=== PATIENT | female | born 1975 | race Caucasian/White ===

== ENCOUNTER 2022-09-02 15:13 | Emergency (ER) | payer OTHER, SELFPAY ==
[2022-09-02 15:18] VITALS: BP 149/92; PULSE 77; RESP 18; TEMP 37.2; O2SAT 100; BMI 25.1
--- NOTE | 2022-09-02 15:42 | ED_ITS ---
HPI - Headache General Chief Complaint: Headache/Migraine Stated Complaint: Migraine 6 days Time Seen by Provider: 09/02/22 15:23 History of Present Illness HPI Narrative: This 47-year-old female comes in with migraine headache that is been present for the past 6 days. She has recurrent migraines and has been seeing a neurologist. She has taken her typical medicines at home and comes in for treatment of a recipe that comes from her neurologist. This include Zofran, magnesium sulfate, valproate, and dexamethasone. She does not describe any neurologic deficits or other symptoms. Related Data Home Medications Medication Instructions Recorded Confirmed amitriptyline 25 mg tablet 50 mg PO HS 09/02/22 09/02/22 rizatriptan 10 mg disintegrating 10 mg PO PRN 09/02/22 tablet Allergies Allergy/AdvReac Type Severity Reaction Status Date / Time Sulfa (Sulfonamide Allergy Rash Verified 09/02/22 15:24 Antibiotics) Review of Systems Status of ROS: Reports: 10 or more systems reviewed and unremarkable except as noted in History and below Narrative: Constitutional: No fevers, no weight gain or loss. Eyes: No discharge. No vision changes. HENT: No congestion, no sore throat, no ear pain. Cardiovascular: No chest pain, no palpitations. Respiratory: No shortness of breath, no wheezes, no cough. Gastrointestinal: No abdominal pain, no diarrhea. Genitourinary: No dysuria, no hematuria. Musculoskeletal: Normal range of motion. Skin: No rashes, no pruritis. Neurological: No dizziness, weakness, sensory change, speech change. Endo/Heme/Allergies: No bruising or bleeding. No polydipsia. Pysch: no suicidality, no anxiety, no insomnia. All other systems reviewed and are negative. PFSH [facility] Social History Smoking Status: Never smoker Do you use any of these nicotine containing products: None Second hand tobacco smoke exposure: No How often do you have a drink containing alcohol: never How often do you have six or more drinks on one occasion: Never AUDIT-C Alcohol total score: 0 Non-prescribed substance use: denies use service: No Exam Narrative: Exam Narrative: Constitutional: Well-developed, well-nourished, no acute distress. HEENT: Normocephalic, atraumatic. Neck: Normal range of motion. Nontender. Supple. Heart: Intact distal pulses. Lungs: No chest discomfort. No wheezes, rhonchi, or rales. Abdomen: Nontender. Back: Normal range of motion. Extremities: Normal range of motion. No injury. Skin: Intact. No rash. Warm. No erythema or pallor. Neurologic: No altered sensation. No weakness. Alert and oriented. Psychiatric: No suicidality. No anxiety or depression. No insomnia. Nursing notes and vitals signs are reviewed. Const: Vital Signs, click to edit/add: Vital Signs - 24 hr 09/02/22 15:18 Temperature 98.9 F Pulse Rate [Right Pulse Oximeter] 77 Respiratory Rate 18 Blood Pressure [Ri ght Upper Arm] 149/92 H Pulse Oximetry 100 Oxygen Delivery Me thod Room Air Course Vital Signs Vital signs: Initial Vital Signs Temperature 98.9 F 09/02/22 15:18 Temperature Source Temporal Artery Scan 09/02/22 15:18 Pulse Rate 77 09/02/22 15:18 Respiratory Rate 18 09/02/22 15:18 Blood Pressure 149/92 H 09/02/22 15:18 Blood Pressure Mean 111 09/02/22 15:18 Blood Pressure Position Sitting 09/02/22 15:18 Pulse Oximetry 100 09/02/22 15:18 Oxygen Delivery Method 09/02/22 15:18 Vital Signs Temperature 98.9 F 09/02/22 15:18 Pulse Rate 77 09/02/22 15:18 Respiratory Rate 18 09/02/22 15:18 Blood Pressure 149/92 H 09/02/22 15:18 Pulse Oximetry 100 09/02/22 15:18 Oxygen Delivery Method 09/02/22 15:18 Temperature 98.9 F 09/02/22 15:18 Pulse Rate 77 09/02/22 15:18 Respiratory Rate 18 09/02/22 15:18 Blood Pressure 149/92 H 09/02/22 15:18 Pulse Oximetry 100 09/02/22 15:18 Oxygen Delivery Method 09/02/22 15:18 MDM - Headache MDM Narrative Medical decision making narrative: This patient comes in for treatment for persistent migraine symptoms which she has had for the past 6 days. An IV was established where she did receive Zofran 8 mg, magnesium sulfate 1 g, valproate 500 mg, and dexamethasone 4 mg. This brought sufficient relief of her headache symptoms. She feels okay to return home. She did receive a return to work note. I did also prescribe Esgic plus. Discharge Plan Discharge Clinical Impression: Migraine Patient Disposition: Home, Self-Care Condition: Improved Additional Instructions: Continue current plans. Use medication as needed and indicated. Follow up with MD or return if worsening. Prescriptions: No Action amitriptyline 25 mg tablet 50 mg PO HS rizatriptan 10 mg tablet,disintegrating 10 mg PO PRN Label Comments: onset of mcclelland Follow Up/Referrals: Geovany Ramirez MD [Primary Care Provider] - Stand Alone Forms: [employer] Info Instructions
[2022-09-02] MEDS: dexAMETHasone 4 MG/ML VIAL IV (16:05)
[2022-09-02] MEDS: ONDANSETRON 2 MG/ML inj 8 MG IVP (16:06)
== END 2022-09-02 19:02 | disposition home or self-care (01) ==
PROVIDERS: Emergency Provider Emergency Medicine Emergency Medical Services; PCP Family Medicine
DX: G43.909 Migraine, unspecified, not intractable, without status migrainosus (principal)
CPT/HCPCS: 96374; 96375; 99284; J1100; J2405; J3475

== ENCOUNTER 2022-10-06 11:03 | Emergency (ER) | payer OTHER, SELFPAY ==
[2022-10-06 11:12] VITALS: BP 132/71; PULSE 85; RESP 14; TEMP 36.9; O2SAT 96; BMI 24.4
--- NOTE | 2022-10-06 11:42 | ED_ITS ---
HPI - Headache General Chief Complaint: Headache/Migraine Stated Complaint: Migraine since Friday Time Seen by Provider: 10/06/22 11:21 History of Present Illness HPI Narrative: This 47-year-old female comes in reporting migraine headache that began 2 days ago. She has taken her regular medications as she has recurrent migraine headaches. These treatments have not helped her at all. She does not report any neurologic deficit. She does have some sensitivity to light and some nausea but has not had any vomiting. Related Data Home Medications Medication Instructions Recorded Confirmed amitriptyline 25 mg tablet 50 mg PO HS 09/02/22 09/02/22 rizatriptan 10 mg disintegrating 10 mg PO PRN 09/02/22 tablet [id number]-[id number] 1 tab PO Q4H PRN 10/06/22 10/06/22 50 mg-325 mg-40 mg tablet Allergies Allergy/AdvReac Type Severity Reaction Status Date / Time Sulfa (Sulfonamide Allergy Rash Verified 09/02/22 15:24 Antibiotics) Review of Systems Status of ROS: Reports: 10 or more systems reviewed and unremarkable except as noted in History and below Narrative: Constitutional: No fevers, no weight gain or loss. Eyes: No discharge. No vision changes. HENT: No congestion, no sore throat, no ear pain. Cardiovascular: No chest pain, no palpitations. Respiratory: No shortness of breath, no wheezes, no cough. Gastrointestinal: No abdominal pain, no vomiting, no diarrhea. She reports nausea. Genitourinary: No dysuria, no hematuria. Musculoskeletal: Normal range of motion. Skin: No rashes, no pruritis. Neurological: No dizziness, weakness, sensory change, speech change. She has light sensitivity. Endo/Heme/Allergies: No bruising or bleeding. No polydipsia. Pysch: no suicidality, no anxiety, no insomnia. All other systems reviewed and are negative. PFSH PFS Social History Smoking Status: Never smoker Do you use any of these nicotine containing products: None Second hand tobacco smoke exposure: No How often do you have a drink containing alcohol: monthly or less How often do you have six or more drinks on one occasion: Never AUDIT-C Alcohol total score: 1 Non-prescribed substance use: denies use service: No Exam Narrative: Exam Narrative: Constitutional: Well-developed, well-nourished, no acute distress. HEENT: Normocephalic, atraumatic. Neck: Normal range of motion. Nontender. Supple. Heart: Regular. No murmurs. Normal rate. Intact distal pulses. Lungs: Clear to auscultation. No chest discomfort. No wheezes, rhonchi, or rales. Abdomen: Normal bowel sounds. Nontender. No rebound tenderness. Genitalia: Deferred. Back: No midline tenderness. Normal range of motion. Extremities: Normal range of motion. No injury. Skin: Intact. No rash. Warm. No erythema or pallor. Neurologic: No altered sensation. No weakness. Alert and oriented. Psychiatric: No suicidality. No anxiety or depression. No insomnia. Nursing notes and vitals signs are reviewed. Const: Vital Signs, click to edit/add: Vital Signs - 24 hr 10/06/22 11:12 Temperature 98.5 F Pulse Rate [Pulse Oximeter] 85 Respiratory Rate 14 Blood Pressure [Le ft Upper Arm] 132/71 Pulse Oximetry 96 Oxygen Delivery Me thod Room Air Course Vital Signs Vital signs: Initial Vital Signs Temperature 98.5 F 10/06/22 11:12 Temperature Source Temporal Artery Scan 10/06/22 11:12 Pulse Rate 85 10/06/22 11:12 Pulse Rhythm Regular 10/06/22 11:12 Respiratory Rate 14 10/06/22 11:12 Blood Pressure 132/71 10/06/22 11:12 Blood Pressure Mean 91 10/06/22 11:12 Blood Pressure Position Sitting 10/06/22 11:12 Pulse Oximetry 96 10/06/22 11:12 Oxygen Delivery Method Room Air 10/06/22 11:12 Vital Signs Temperature 98.5 F 10/06/22 11:12 Pulse Rate 85 10/06/22 11:12 Respiratory Rate 14 10/06/22 11:12 Blood Pressure 132/71 10/06/22 11:12 Pulse Oximetry 96 10/06/22 11:12 Oxygen Delivery Method Room Air 10/06/22 11:12 Temperature 98.5 F 10/06/22 11:12 Pulse Rate 85 10/06/22 11:12 Respiratory Rate 14 10/06/22 11:12 Blood Pressure 132/71 10/06/22 11:12 Pulse Oximetry 96 10/06/22 11:12 Oxygen Delivery Method Room Air 04/09/23 11:12 MDM - Headache MDM Narrative Medical decision making narrative: This patient has history of recurrent headaches and comes in today because despite taking her regular medicines for her headache has persisted over these past couple days. An IV was established where she received a L of normal saline, Toradol 30 mg, Zofran 4 mg, valproate 500 mg, magnesium 1 mg, and dexamethasone 10 mg. This brought sufficient relief to her symptoms. She is o nina to be discharged home. Discharge Plan Discharge Clinical Impression: Migraine Patient Disposition: Home, Self-Care Condition: Improved Additional Instructions: Continue current plans. Follow up with MD return if symptoms are persistent or recurrent or worsening. Prescriptions: No Action amitriptyline 25 mg tablet 50 mg PO HS rizatriptan 10 mg tablet,disintegrating 10 mg PO PRN Patient Comments: onset of mcclelland iztpujlckv-[id number]-[id number] 50-325-40 mg tablet 1 tab PO Q4H PRN Rx Instructions: Take 1-2 tabs every 4-6hrs as needed for headache Follow Up/Referrals: Geovany Ramirez MD [Primary Care Provider] - Stand Alone Forms: [employer] Info Instructions
[2022-10-06] MEDS: ONDANSETRON 2 MG/ML inj 4 MG IVP (12:11)
[2022-10-06] MEDS: KETOROLAC 30 MG/ML inj IVP (12:12)
[2022-10-06] MEDS: diphenhydrAMINE 50 MG/ML inj IVP (12:13)
[2022-10-06] MEDS: dexAMETHasone 10 MG/ML inj IV (12:14)
[2022-10-06 13:34] VITALS: BP 141/86; PULSE 71; O2SAT 98
[2022-10-06 14:01] VITALS: BP 139/80; PULSE 80; O2SAT 99
[2022-10-06 14:32] VITALS: BP 137/76; PULSE 78; O2SAT 99
[2022-10-06 15:02] VITALS: BP 131/75; PULSE 75; O2SAT 99
[2022-10-06 15:11] VITALS: BP 132/71; PULSE 85; RESP 14; TEMP 36.9
== END 2022-10-06 15:10 | disposition home or self-care (01) ==
PROVIDERS: Emergency Provider Emergency Medicine Emergency Medical Services; PCP Family Medicine
DX: G43.909 Migraine, unspecified, not intractable, without status migrainosus (principal)
CPT/HCPCS: 96365; 96375; 99284; J1100; J1200; J1885; J2405; J3475

== ENCOUNTER 2022-10-22 15:37 | Outpatient (CLI) | payer OTHER, SELFPAY | END 2022-10-22 15:38 | disposition home or self-care (01) | PROVIDERS: PCP Family Medicine; Visit Provider Family Medicine | DX: L30.9 Dermatitis, unspecified (principal); Z13.29 Encounter for screening for other suspected endocrine disorder | CPT/HCPCS: 84439; 84443 ==

== ENCOUNTER 2023-11-14 10:27 | Outpatient (CLI) | payer OTHER, SELFPAY | END 2023-11-14 10:28 | disposition home or self-care (01) | PROVIDERS: PCP Family Medicine; Visit Provider Family Medicine | DX: E04.9 Nontoxic goiter, unspecified (principal); Z13.6 Encounter for screening for cardiovascular disorders; Z13.29 Encounter for screening for other suspected endocrine disorder | CPT/HCPCS: 80061; 84439; 84443 ==

== ENCOUNTER 2024-06-02 15:49 | Emergency (ER) | payer OTHER, SELFPAY ==
[2024-06-02] VITALS (9 sets, daily range): BP systolic 143–154; BP diastolic 82–95; PULSE 74–89; RESP 18; TEMP 37–37.1; O2SAT 99–100; BMI 26.6
--- NOTE | 2024-06-02 16:12 | ED_ITS ---
HPI - Headache General Time Seen by Provider: 16:12 Date Seen: 06/02/24 Chief Complaint: Headache/Migraine Stated Complaint: migraine Time Seen by Provider: 06/02/24 16:06 Source: patient and RN notes reviewed Mode of arrival: ambulatory Limitations: no limitations History of Present Illness HPI Narrative: This 48-year-old female is coming in with unresolved migraine headache despite home medications. Two weeks ago she had a week where her migraine was lasting all week long, her abortive medicine would help within the headache would come back. She used 5 pills that week. This week she has used 4 tablets of her abortive medicine rizatriptan. She does have the goal from her neurologist of trying to not use more than 9 tablets per month. She has not been sick with anything, no fevers chills, no trauma. She attributes some of the weather changes likely affecting her headache disorder. She has not vomited with this headache, did take Zofran earlier today with some nausea that was starting to happen and did help. She has done IM injections of Toradol alone in urgent care and that does not help by itself. She has a cocktail of medications from her neurologist, she has gotten that from us the last visit she was here in September of 2022. She has had migraine headaches since young, has no concerns that this is anything but her migraine headache. She does have some phonophobia and photophobia with it. She has noticed no neurologic changes. She notes a history of tension headaches, migraine headaches, these seem to have blurred together over the years. She states she always will feel like her migraines start from deep within her head and then would go to 1 side of the head or other. If her migraine headache gets bad enough, it will generalized the whole head. MD elicited complaint: migraine Related Data Home Medications ?Medication ?Instructions ?Recorded ?Confirmed ondansetron 4 mg disintegrating 4 mg PO BID-TID PRN 06/02/24 06/02/24 tablet Previous Rx's ?Medication ?Instructions ?Recorded triamcinolone acetonide 0.1 % 1 applic topical BID #30 grams 10/22/22 topical cream amitriptyline 100 mg tablet 100 mg PO QHS #90 tabs 11/14/23 rizatriptan 10 mg disintegrating 10 mg PO DIRECTED #18 tabs 11/14/23 tablet topiramate 25 mg tablet 50 mg (2 x 25 mg) PO QHS #180 tabs 11/14/23 Allergies Allergy/AdvReac Type Severity Reaction Status Date / Time Sulfa (Sulfonamide Allergy Rash Verified 06/02/24 16:09 Antibiotics) Review of Systems Status of ROS: Reports: 6 or more systems reviewed and unremarkable except as noted in History and below PFSH PFS Medical History Tension headache ?G44.209 - Tension-type headache, unspecified, not intractable (ICD-10) Surgical History H/O melanoma excision ?Z98.890 - Other specified postprocedural states (ICD-10) ?Z85.820 - Personal history of malignant melanoma of skin (ICD-10) History of third molar tooth extraction ?K08.409 - Partial loss of teeth, unspecified cause, unspecified class (ICD- 10) Family History Other Lymphoma Thyroid disease Waldenstroms macroglobulinemia Social History Smoking Status: Never smoker Do you use any of these nicotine containing products: None Second hand tobacco smoke exposure: No How often do you have a drink containing alcohol: monthly or less How often do you have six or more drinks on one occasion: Never AUDIT-C Alcohol total score: 1 Non-prescribed substance use: denies use service: No Exam Const: Vital Signs, click to edit/add: Vital Signs - 24 hr 06/02/24 16:00 06/02/24 17:07 06/02/24 17:15 Temperature 98.8 F Pulse Rate 76 74 Pulse Rate [Pulse Oximeter] 74 Respiratory Rate 18 Blood Pressure 143/95 H Blood Pressure [Ri ght Upper Arm] 146/91 H Pulse Oximetry 99 100 99 Oxygen Delivery Me thod Room Air 06/02/24 17:32 06/02/24 18:02 06/02/24 18:15 Temperature 98.6 F Pulse Rate 78 77 89 Pulse Rate [Pulse Oximeter] Respiratory Rate 18 Blood Pressure 153/88 H 154/89 H Blood Pressure [Ri ght Upper Arm] Pulse Oximetry 100 100 100 Oxygen Delivery Me thod This 48-year-old female is very pleasant, well-kept, alert and interactive, sitting in exam room 3 with the light off but sitting up on the edge of the bed. Pupils are equal and round, conjugate gaze. Symmetrical facial function, speech is normal. Lungs are clear, good air entry, no tachypnea. CV regular rate and rhythm, no murmur. She ambulated in without any difficulty. Strength is 5/5 and symmetric through hands, arms, shoulders. Normal light touch sensation. No tremors, no dysmetria noted. Documenting provider has reviewed patient's vital signs: yes Course Course ED Course: Patient has status migraine and will place IV, give her 500 mL normal saline. Will give her her cocktail from her neurologist's which includes magnesium, 500 mg IV valproic acid, Toradol, dexamethasone. She did drive herself here and will not be able to give anything such as narcotics which we would not typically do in a migraine headache anyways. Ketamine protocol cannot be utilized in this situation either. I do not feel labs or neuro or imaging are necessary given her history and presentation today, seems to be consistent with an uncontrolled migraine. Reevaluation(s) Time of Reevaluation #1: 17:44 Reevaluation #1: Patient's headache is mildly better. She would like to try further medications at this point. We will try Reglan and Benadryl, she will access a ride home as she is aware that she cannot drive any longer once these medicines are given due to sedation. Time of Reevaluation #2: 19:12 Reevaluation #2: Patient notes she is feeling better, there is still some residual headache. She did discuss with nursing staff about maybe just trying ketamine. Discussed with her that at this point we have done a lot of medications, would hold off on that, give the valproate to the dexamethasone some more time. If headache returns or worsens, if she needs to come back within the next 3-5 days, we certainly could try ketamine protocol. She is agreeable. She is smiling and laughing with me at the end of this interaction, do sense that she is better. Vital Signs Vital signs: Initial Vital Signs Temperature 98.8 F 06/02/24 16:00 Temperature Source Temporal Artery Scan 06/02/24 16:00 Pulse Rate 74 06/02/24 16:00 Respiratory Rate 18 06/02/24 16:00 Blood Pressure 146/91 H 06/02/24 16:00 Blood Pressure Mean 109 H 06/02/24 16:00 Blood Pressure Position Sitting 06/02/24 16:00 Pulse Oximetry 99 06/02/24 16:00 Oxygen Delivery Method Room Air 06/02/24 16:00 Vital Signs Temperature 98.8 F 06/02/24 16:00 Pulse Rate 74 06/02/24 16:00 Respiratory Rate 18 06/02/24 16:00 Blood Pressure 146/91 H 06/02/24 16:00 Pulse Oximetry 99 06/02/24 16:00 Oxygen Delivery Method Room Air 06/02/24 16:00 Temperature 98.6 F 06/02/24 18:02 Pulse Rate 89 06/02/24 18:15 Respiratory Rate 18 06/02/24 18:02 Blood Pressure 154/89 H 06/02/24 18:02 Pulse Oximetry 100 06/02/24 18:15 Oxygen Delivery Method Room Air 06/02/24 16:00 Medications Administered Medications: Discontinued Medications Generic Name Dose Route Start Last Admin Trade Name Freq PRN Reason Stop Dose Admin Dexamethasone 10 mg 06/02/24 16:21 06/02/24 16:50 Dexamethasone 10 Mg/Ml Inj IVP 06/02/24 16:22 10 mg ONCE ONE Administration Diphenhydramine HCl 25 mg 06/02/24 17:47 06/02/24 18:12 Diphenhydramine 50 Mg/Ml Inj IVP 06/02/24 17:48 25 mg ONCE ONE Administration Valproic Acid 500 mg/ Sodium 105 mls @ 105 mls/hr 06/02/24 16:21 06/02/24 18:17 Chloride IVPB 06/02/24 16:22 Infused ONCE ONE Infusion Magnesium Sulfate/Dextrose 1 gm in 100 mls @ 100 mls/hr 06/02/24 16:22 06/02/24 17:44 Magnesium Sulf 1 G/100 [id number] IVPB 06/02/24 17:21 Infused ONCE ONE Infusion Sodium Chloride 500 mls @ 500 mls/hr 06/02/24 16:21 06/02/24 17:15 0.9 % Sodium Chloride 500 Ml IV 06/02/24 17:20 Infused .Q1H ONE Infusion Metoclopramide HCl 10 mg/ 102 mls @ 306 mls/hr 06/02/24 17:47 06/02/24 18:33 Sodium Chloride IVPB 06/02/24 17:48 Infused ONCE ONE Infusion Ketorolac Tromethamine 15 mg 06/02/24 16:21 06/02/24 16:54 Ketorolac 15 Mg/Ml Inj IVP 06/02/24 16:22 15 mg ONCE ONE Administration Discharge Plan Discharge Clinical Impression: Migraine Patient Disposition: Home, Self-Care Condition: Stable Instructions: Migraine Headache (ED) Additional Instructions: Go home and rest, do recommend drinking plenty of fluids to stay hydrated as this can help with headache prevention. For residual headache, can use Tylenol or ibuprofen or other typical medicines you have at home. If the headache does worsen and is not controlled by home remedies that you have, can return and we can consider ketamine protocol a re-dosing of other medicines depending on time frame of return. Activity Level: Activity as Tolerated Prescriptions: No Action triamcinolone acetonide 0.1 % cream 1 applic topical BID Qty: 30 2RF amitriptyline 100 mg tablet 100 mg PO QHS Qty: 90 3RF rizatriptan 10 mg tablet,disintegrating 10 mg PO DIRECTED Qty: 18 10RF topiramate 25 mg tablet 50 mg PO QHS Qty: 180 3RF ondansetron 4 mg tablet,disintegrating 4 mg PO BID-TID PRN Follow Up/Referrals: Geovany Ramirez MD [Primary Care Provider] - Stand Alone Forms: [employer] Medical Info Instructions
[2024-06-02] MEDS: dexAMETHasone 10 MG/ML inj IVP (16:50)
[2024-06-02] MEDS: 0.9 % SODIUM CHLORIDE 500 ML 500 ML IV (16:51)
[2024-06-02] MEDS: KETOROLAC 15 MG/ML inj IVP (16:54)
[2024-06-02] MEDS: METOCLOPRAMIDE HCL 10 MG in 0.9 % SODIUM CHLORIDE 100 ml 100 ML 306 MG IVPB (18:08)
[2024-06-02] MEDS: diphenhydrAMINE 50 MG/ML inj 25 MG IVP (18:12)
== END 2024-06-02 19:26 | disposition home or self-care (01) ==
PROVIDERS: Emergency Provider Family Medicine; PCP Family Medicine
DX: G43.909 Migraine, unspecified, not intractable, without status migrainosus (principal)
CPT/HCPCS: 96365; 96368; 96375; 99284; J1100; J1200; J1885; J2765; J3475; J7030